=== PATIENT | female | born 1945 | race Caucasian/White ===

== ENCOUNTER → 2018-04-28 07:48 | Outpatient (CLI) | payer MEDICARE, SELFPAY ==
[2018-04-28 08:42] LABS: Alanine Aminotransferase 21 IU/L (9-52); Albumin 4.4 g/dL (3.5-5.0); Albumin Globulin Ratio 1.5 (1.0-2.8); Alkaline Phosphatase 82 U/L (38-126); Aspartate Aminotransferase 23 IU/L (14-36); BUN Creatinine Ratio 17.1 (6-22); Bilirubin Total 0.3 mg/dL (0.2-1.3); Blood Urea Nitrogen 12 mg/dL (7-17); Calcium 9.1 mg/dL (8.4-10.2); Carbon Dioxide 26 mmol/L (22-32); Chloride 105 mmol/L (98-107); Cholesterol 238 mg/dL (140-199); Estimated Glomerular Filt Rate > 60.0 mL/min (>60); Globulin 2.9 g/dL (1.7-4.1); Glucose 98 mg/dL (80-110); HDL Cholesterol 73 mg/dL (40-60); HEMOLYSIS < 15 (0-50); LDL Cholesterol Calculated 156 mg/dL (<100); Potassium 4.3 mmol/L (3.4-5.1); Sodium 140 mmol/L (137-145); Total Protein 7.3 g/dL (6.3-8.2); Triglycerides 46 mg/dL (35-150)
[2018-04-28 09:19] LABS: Thyroid Stimulating Hormone 2.64 uIU/mL (0.47-4.68)
== END ==
PROVIDERS: PCP Physician Assistant; Visit Provider Physician Assistant
DX: E03.9 Hypothyroidism, unspecified (principal); E78.5 Hyperlipidemia, unspecified; M81.0 Age-related osteoporosis without current pathological fracture
CPT/HCPCS: 36415; 80053; 80061; 82306; 84443

== ENCOUNTER 2018-11-20 08:18 | Emergency (ER) | payer MEDICARE, SELFPAY ==
[2018-11-20 08:32] VITALS: BP 190/113; PULSE 64; RESP 18; TEMP 36.4; O2SAT 99
[2018-11-20 08:50] VITALS: BP 177/91; PULSE 63; RESP 14; O2SAT 97
--- NOTE | 2018-11-20 08:57 | ED.SKABFB ---
HPI - Skin/Abscess/Foreign Bdy General Chief complaint: Skin/Abscess/Foreign Body Stated complaint: L leg injury/cat jumped on it Time Seen by Provider: 11/20/18 08:51 Source: patient Mode of arrival: ambulatory Limitations: no limitations History of Present Illness HPI narrative: Patient is a 73-year-old female who presents with rash on her left lower leg. She says 2 weeks ago her cat clawed her 10 puncture wounds from his claws no bite [place]. She has been soaking in Epsom salt and putting Neosporin on it. Yesterday she has thought that she noticed some more redness she has no fever no gross pus wounds actually seems healed. She denies any fever or pus or drainage from her wounds. She has no pain to her leg. MD complaint: rash Onset (ago): week(s) (2) Related Data Home Medications Medication Instructions Recorded Confirmed [SUNCHLORELLA] 500 mg PO TID #0 03/10/17 05/06/18 [TURMERIC] PO QDAY #0 03/10/17 05/06/18 Previous Rx's Medication Instructions Recorded levothyroxine 100 mcg tablet 100 mcg PO QAM #90 tab 05/06/18 varicella-zoster glycoE [id number] 50 mcg IM ONCE #1 each 05/06/18 adj(PF) 50 mcg/0.5 mL IM susp, kit Allergies Allergy/AdvReac Type Severity Reaction Status Date / Time amoxicillin [AMOXICILLIN] Allergy Severe C-DIFF Verified 11/20/18 08:46 Review of Systems Review of Systems GENERAL: Denies chills,fever HEENT: Denies throat pain RESPIRATORY: Denies dyspnea, cough, wheezing CARDIOVASCULAR: Denies chest pain, palpitations GASTROINTESTINAL: Denies nausea, vomiting MUSCULOSKELETAL: Denies extremity pain, injury SKIN: See HPI NEUROLOGIC: Denies weakness, dizziness, headache, numbness 8 point review of systems is negative except for those stated above and HPI PFSH Medical History Hypothyroid (Acute) Social History Smoking Status: Never smoker Social History Smoking Status: Never smoker Exam Initial Vital Signs Initial Vital Signs: Vital Signs Temperature 97.6 F 11/20/18 08:32 Pulse Rate 64 11/20/18 08:32 Respiratory Rate 18 11/20/18 08:32 Blood Pressure 190/113 H 11/20/18 08:32 Pulse Oximetry 99 11/20/18 08:32 GENERAL: Well-appearing, well-nourished and in no acute distress. CARDIOVASCULAR: peripheral pulses in tact, cap refill <2 sec RESPIRATORY: No respiratory distress, speaks in full sentences without difficulty EXTREMITIES: Normal range of motion, no clubbing or edema. Neurovascularly intact NEUROLOGICAL: Cranial nerves II through XII grossly intact. Normal gait and speech. SKIN: Puncture wounds on the left lower leg are completely healed. She has very mild scattered erythema. Not convincing for cellulitis. Course Vital Signs - 8 hr 11/20/18 08:32 11/20/18 08:50 Temperature 97.6 F Pulse Rate 64 63 Respiratory Rate 18 14 Blood Pressure 190/113 H Blood Pressure [Right Arm] 177/91 H Pulse Oximetry 99 97 MDM - Skin/Abscess/Foreign Bdy MDM Narrative Medical decision making narrative: At this time it does not appear infected to me no indication for antibiotics. I have explained this to the patient. She will continue doing what she is doing. I have also explained if the redness becomes more diffuse and her leg painful and she has a fever she needs return to the ED. Discharge Plan Departure Patient Disposition: Home Clinical Impression: Puncture wound Instructions: DI for Cellulitis -- Adult Activity Restrictions/Additional Instructions: *You have been diagnosed with healed puncture wound *What to do: Your wounds actually seemed to be healed at this time. There is no infection. No need for antibiotics. Continue your current treatment *Continue to take medications as directed *Follow up with your primary care provider in 2-3 days *Return to ER if you should have fever, old leg redness, pus, tenderness or any new, worsening or concerning symptoms Prescriptions: No Action varicella-zoster [id number] (PF) [Shingrix (PF)] 50 mcg/0.5 mL suspension for reconstitution 50 mcg IM ONCE Qty: 1 RF: 1 Hold Instructions: wait until next year levothyroxine 100 mcg tablet 100 mcg PO QAM Qty: 90 RF: 3 [SUNCHLORELLA] 500 mg PO TID Qty: 0 RF: 0 [TURMERIC] PO QDAY Qty: 0 RF: 0 Referrals: Kay Cotto PA-C [Primary Care Provider] -
== END 2018-11-20 09:12 | disposition home or self-care (01) ==
PROVIDERS: Emergency Provider Emergency Medicine; PCP Physician Assistant
DX: S80.812A Abrasion, left lower leg, initial encounter (principal); W55.03XA Scratched by cat, initial encounter
CPT/HCPCS: 99282

== ENCOUNTER → 2019-04-28 07:28 | Outpatient (CLI) | payer MEDICARE, SELFPAY ==
[2019-04-28 08:11] LABS: Alanine Aminotransferase 18 IU/L (<35); Albumin 4.6 g/dL (3.5-5.0); Albumin Globulin Ratio 1.6 (1.0-2.8); Alkaline Phosphatase 98 U/L (38-126); Aspartate Aminotransferase 26 IU/L (14-36); Bilirubin Total 0.5 mg/dL (0.2-1.3); Blood Urea Nitrogen 14 mg/dL (7-17); Calcium 9.7 mg/dL (8.4-10.2); Carbon Dioxide 26 mmol/L (22-32); Chloride 104 mmol/L (98-107); Cholesterol 247 mg/dL (140-199); Estimated Glomerular Filt Rate > 60.0 mL/min (>60); Globulin 2.9 g/dL (1.7-4.1); Glucose 102 mg/dL (80-110); HDL Cholesterol 71 mg/dL (40-60); HEMOLYSIS < 15 (0-50); LDL Cholesterol Calculated 167 mg/dL (<100); Potassium 3.9 mmol/L (3.4-5.1); Sodium 138 mmol/L (137-145); Total Protein 7.5 g/dL (6.3-8.2); Triglycerides 44 mg/dL (35-150)
[2019-04-28 08:41] LABS: Vitamin D 25 Hydroxy (D3) 31.1 ng/mL (30.0-100.0)
[2019-04-28 08:56] LABS: Thyroid Stimulating Hormone 4.35 uIU/mL (0.47-4.68)
== END ==
PROVIDERS: PCP Physician Assistant; Visit Provider Physician Assistant
DX: E03.9 Hypothyroidism, unspecified (principal); E78.5 Hyperlipidemia, unspecified; M81.0 Age-related osteoporosis without current pathological fracture
CPT/HCPCS: 36415; 80053; 80061; 82306; 84443